=== PATIENT | male | born 1985 | race Caucasian/White ===

== ENCOUNTER 2024-06-03 13:59 | Emergency (ER) | payer BC, SELFPAY ==
--- NOTE | 2024-06-03 14:02 | XR_ITS ---
Examination: AP chest single view Technique: AP portable semiupright chest single view Exam date and time: June 03, 2024 1440 hrs. Indications: Shortness of breath beginning 2 days ago. Findings: Mild prominence of ventricle No pneumonia or pulmonary edema Intact osseous structures Impression: No active disease
--- NOTE | 2024-06-03 14:02 | EKG_ITS ---
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
--- NOTE | 2024-06-03 14:04 | EDNOTE_ITS ---
<Statement entered by Adriana Trujillo MD - 06/03/24 19:45> As co-signing physician, I was present and available for consult prn. I concur with the plan and care as documented by the midlevel provider. ED General RME/HPI General Chief complaint: Shortness of Breath/Dyspnea Stated complaint: SOB Time Seen by Provider: 06/03/24 14:00 Arrival date/time: 06/03/24 13:59 RME / HPI RME / HPI narrative: 39-year-old male patient with no significant past medical history except for chronic smoker, was brought in by EMS for evaluation regarding shortness of breath. Onset of symptoms for several days, getting worse today, while at work, patient was noted to be super weak, lying on the ground. EMS arrived patient was noted to be wheezing, and having shortness of breath. Patient uses his albuterol with no relief. Patient was given albuterol breathing treatment and put the patient on oxygen afforded significant improvement of symptoms. Related Data Previous Rx's ?Medication ?Instructions ?Recorded albuterol sulfate 90 mcg/actuation 2 inh inhalation QID PRN shortness 06/03/24 breath activated powder inhaler of breath or wheezing #1 ea (ProAir RespiClick) fluticasone 250 mcg-salmeterol 50 1 inh inhalation BID #60 ea 06/03/24 mcg/dose blistr powdr for inhalation (Advair Diskus) prednisone 50 mg tablet 50 mg PO QDAY #5 tabs 06/03/24 Allergies Allergy/AdvReac Type Severity Reaction Status Date / Time No Known Allergies Allergy Verified 06/03/24 14:46 Review of Systems Review of Systems Narrative Review of Systems: Review of system reviewed and within normal limits except mentioned in HPI ED Exam Narrative Physical exam: VITAL SIGNS: Reviewed. GENERAL APPEARANCE: Alert and interactive, follows commands, no acute distress, HEAD AND FACE: Non-traumatic. ENT: PERRL, pink conjunctivitis, eyelid no trauma, Mucous membrane moist. NECK: Supple, nontender, no nuchal rigidity. CHEST: No tenderness, no crepitus, no paradoxical movement, no retractions. LUNGS: Clear, well ventilated, symmetric, no rales, no wheezing, no ronchi, no stridor, good breath sounds bilaterally. HEART: Regular rate, regular rhythm, no murmur, no gallops. ABDOMEN: Soft, positive bowel sounds, nondistended, no guarding, nontender, no rebound, no masses, RECTAL: Deferred. GENITAL: Deferred. NEUROLOGICAL: Gross motor function intact sensory function intact, Appropriate for age. MUSCULOSKELETAL: low back nontender, full range of motion. EXTREMITIES: Nontender, full range of motion. SKIN: Color pink, dry, no rash, no lacerations, no abrasions, no contusions. LYMPHATICS: Deferred. Course Quality Measures none Orders Category Date Time Status Bedside COVID-19 Antigen Test NOW Care 06/03/24 14:03 Active Bedside Influenza A&B Antigen Test NOW Care 06/03/24 14:03 Completed EKG (ED ONLY) *Do not use* NOW Care 06/03/24 14:02 Completed EKG (ED Only) Stat Exams 06/03/24 14:02 Draft XR chest 1V Stat Exams 06/03/24 14:02 Completed B-Type Natriuretic Peptide Stat Lab 06/03/24 14:28 Completed Blood Culture (Lab) Stat Lab 06/03/24 16:02 Received C-Reactive Protein Stat Lab 06/03/24 14:28 Completed CBC Stat Lab 06/03/24 14:28 Completed Comprehensive Metabolic Panel Stat Lab 06/03/24 14:28 Completed Lactate (Lactic Acid) Stat Lab 06/03/24 14:28 Completed Partial Thromboplastin Time Stat Lab 06/03/24 14:28 Completed Potassium Stat Lab 06/03/24 18:25 Completed Procalcitonin Stat Lab 06/03/24 14:28 Completed Prothrombin Time with INR Stat Lab 06/03/24 14:28 Completed Troponin I Stat Lab 06/03/24 14:28 Completed VBG [Venous Blood Gas] Stat Lab 06/03/24 14:28 Completed Albuterol/Ipratr Rt Sonja [Duoneb Rt Sonja] Med 06/03/24 14:03 Discontinued 3 ml INH X1 ONE Dexamethasone Inj [Decadron Inj] Med 06/03/24 14:05 Discontinued 10 mg IV X1 ONE POTASSIUM CHL 10 mEq IVPB [Kcl Ivpb] Med 06/03/24 16:00 Discontinued 10 meq in 100 ml IV X1 Potassium Chloride [K-Dur] Med 06/03/24 15:59 Discontinued 40 meq PO X1 ONE Potassium Chloride [K-Dur] Med 06/03/24 17:16 Discontinued 40 meq PO X1 ONE Sodium Chloride 0.9% 1000 ml [Ns] 1,000 ml Med 06/03/24 14:03 Discontinued IV 999 mls/hr Vital Signs Vital signs: Vital Signs Pulse Rate 96 06/03/24 14:20 Respiratory Rate 16 06/03/24 14:20 Pulse Oximetry (%) 100 06/03/24 14:20 [facility] Patient data External records reviewed:: EMS form Clinical information provided by:: patient Social determinants that could affect healthcare access:: none Patient has the following chronic illnesses:: Cigarette smoker, COPD, How is presenting disease/condition affected by chronic disease/condition?: e xacerbated by Evaluation data The following diagnostics were reviewed and interpreted by me:: lab results, radiology exam(s) and EKG tracing(s) Lab and/or radiology exams considered but not ordered:: None Interpretation Summary: EKG showed sinus rhythm, ventricular rate of 76 bpm, no ST segment elevation depression noted. Patient's workup today all came back normal. I personally reviewed and interpreted the x-ray of this patient. There is no acute abnormalities found, no infiltrates no pneumothorax no hemothorax normal chest x-ray. Review of other structures was without significant abnormal findings also. I additionally reviewed the radiologist report and agree with the interpretation. Medications Medications considered but not ordered:: None Medication administrations:: Medication Administration History Discontinued Medications Albuterol/Ipratropium (Albuterol/Ipratropium (Duoneb) Rt Sonja 3 Ml Nebu) 3 ml INH X1 ONE Stop: 06/03/24 14:04 Last Admin: 06/03/24 14:20 Dose: 3 ml Documented By: KAROLINE Dexamethasone Sodium Phosphate (Dexamethasone Sod Phos Inj 10 Mg/Ml Vial) 10 mg IV X1 ONE Stop: 06/03/24 14:06 Last Admin: 06/03/24 14:49 Dose: 10 mg Documented By: OANH Sodium Chloride (Ns) 1,000 mls @ 999 mls/hr IV .Q1H1M ONE Stop: 06/03/24 15:03 Last Infusion: 06/03/24 16:00 Dose: Infused Documented By: Admin: 06/03/24 14:49 Dose: 999 mls/hr Documented By: OANH Potassium Chloride (Kcl Ivpb) 10 meq in 100 mls @ 100 mls/hr IV X1 ONE Stop: 06/03/24 16:59 Last Infusion: 06/03/24 17:39 Dose: Infused Documented By: Admin: 06/03/24 16:25 Dose: 100 mls/hr Documented By: GM Potassium Chloride (Potassium Chloride 20 Meq Tabcr) 40 meq PO X1 ONE Stop: 06/03/24 16:00 Last Admin: 06/03/24 16:21 Dose: 40 meq Documented By: GM Potassium Chloride (Potassium Chloride 20 Meq Tabcr) 40 meq PO X1 ONE Stop: 06/03/24 17:17 Last Admin: 06/03/24 17:51 Dose: 40 meq Documented By: AM Potassium replacement, repeat treatment Solu-Medrol IV Consultations Consultation(s) initiated? (list below): No Diagnosis Differential Diagnosis ED Complaint MDM: COPD exacerbation, pneumonia, hypokalemia Most likely diagnosis given after review of the tests above:: Hypokalemia, COPD exacerbation Admission Indicated Admission indicated?: not indicated Explain why admission is indicated or not indicated:: Stable Admission Request Was there a request for admission?: No Disposition Plan Disposition Plan: Discharge Discharge Attestation Discharge Attestation: The patient and all family members were given an opportunity to ask questions and understood the discharge instructions. Discharge instructions specifically effects, indications for sooner follow up or return to the emergency department, and the expected course of current diagnosis. Patient condition: Stable Medical Decision Making MDM Narrative MDM Narrative: 39-year-old male patient with no significant past medical history except for chronic smoker, was brought in by EMS for evaluation regarding shortness of breath. Onset of symptoms for several days, getting worse today, while at work, patient was noted to be super weak, lying on the ground. EMS arrived patient was noted to be wheezing, and having shortness of breath. Patient uses his albuterol with no relief. Patient was given albuterol breathing treatment and put the patient on oxygen afforded significant improvement of symptoms. Patient's workup today all came back significant for potassium of 2.8, patient tested negative for COVID and influenza. Chest x-ray came back unremarkable. Repeat potassium was noted to be 3.6 patient verbalized significant improvement of symptoms Patient received potassium replacement, total breathing treatment, and Solu- Medrol IV patient is satting 95% on room air prior to discharge. Patient was counseled about stopping smoking which could be the reason for his COPD. Patient agrees with the plan Differential Diagnosis Differential Diagnosis: COPD exacerbation, pneumonia, hypokalemia Lab Data 06/03/24 14:28 06/03/24 18:25 Labs: Lab Results 06/03/24 06/03/24 Range/Units 14:28 18:25 WBC 13.7 H (3.8-10.6) Thou/mm3 RBC 4.89 (4.50-5.90) Miln/mm3 Hgb 14.3 (13.5-16.0) g/dL Hct 40.0 L (41.0-53.0) % MCV 82 (80-100) fL MCH 29.2 (25.0-35.0) pg MCHC 35.8 (31.0-37.0) g/dl RDW Std Deviation 36.4 (35.1-43.9) fL Plt Count 318 (140-440) Thou/mm3 Neut % (Auto) 74 (37-80) % Lymph % (Auto) 21 (10-50) % [place] % (Auto) 4 (0-12) % Eos % (Auto) 0 (0-10) % Baso % (Auto) 0 (0-2.5) % Neut # (Auto) 10.1 H (1.8-7.7) Thou/mm3 Lymph # (Auto) 2.9 (1.0-4.8) Thou/mm3 [place] # (Auto) 0.6 (0.0-0.8) Thou/mm3 Eos # (Auto) 0.0 (0.0-0.5) Thou/mm3 Baso # (Auto) 0.0 (0.0-0.2) Thou/mm3 Immature Gran # (Auto) 0.07 H (0.00-0.00) Thou/mm3 Absolute Nucleated RBC 0.00 (0.00-0.00) Thou/mm3 Immature Gran % 1 H (0-0) % Nucleated RBC % 0 (0) /100 WBC PT 10.9 (9.0-12.2) Seconds INR 1.0 (0.9-1.3) APTT 20.4 L (22.0-36.0) Seconds VBG pH 7.57 (7.33-7.66) VBG pCO2 21 L (36-56) mmHg VBG pO2 43 (15-58) mmHg VBG O2 Sat ([place]) 86 L (96-97) % VBG Base Excess 0 (-3-3) Sodium 136 (136-145) mMol/L Potassium 2.8 L 3.6 D (3.4-5.1) mMol/L Chloride 106 (98-107) mMol/L Carbon Dioxide 19.1 L (20.0-31.0) mMol/L Anion Gap 11 (7-16) BUN 15 (9-23) mg/dL Creatinine 1.2 (0.6-1.3) mg/dL Estim Creat Clear Calc 98.2 (>60) mL/min eGFR > 60 (60 - ) See Note BUN/Creatinine Ratio 13 (12-20) Ratio Glucose 78 (74-106) mg/dL Calculated Osmolality 271 L (275-295) Lactic Acid 1.6 (0.4-2.0) mMol/L Calcium 9.9 (8.3-10.6) mg/dL Corrected Calcium 9.9 (8.5-10.1) mg/dL Total Bilirubin 0.8 (0.3-1.2) mg/dL AST 44 H (0-34) U/L ALT 73 H (10-49) U/L Alkaline Phosphatase 60 (46-116) U/L Troponin I < 0.020 (0.0-0.045) ng/mL C-Reactive Prot, Quant < 0.4 (0.0-0.9) mg/dL B-Natriuretic Peptide < 20 (0-100) pg/mL Total Protein 6.9 (5.7-8.2) gm/dL Albumin 5.0 (3.5-5.0) gm/dL Globulin 1.9 L (2.3-3.5) gm/dL Albumin/Globulin Ratio 2.6 H (1.2-2.2) Procalcitonin 0.06 (0.0-0.49) ng/ml Discharge Plan Plan Patient Disposition: HOME (Self Care) Disposition Comment: stable Prescriptions/Referrals Prescriptions/Med Rec: New prednisone 50 mg tablet 50 mg PO QDAY Qty: 5 0RF fluticasone propion-salmeterol [Advair Diskus] 250-50 mcg/dose blister with device 1 inh inhalation BID Qty: 60 0RF ProAir RespiClick 90 mcg/actuation aerosol powdr breath activated 2 inh inhalation QID PRN (Reason: shortness of breath or wheezing) Qty: 1 0RF Referrals: No Primary/Family,Physician [Primary Care Provider] - In 1 week Problem List Clinical Impression: Acute exacerbation of chronic obstructive airways disease, Cigarette smoker, Hypokalemia Patient/Caregiver Discharge Instructions Discharge Activity: activity as tolerated Education Materials: COPD Meds Additional Instructions: Thank you for the opportunity for serving you today. You are stable for discharged . You are advised to: Follow-up with your PCP in 1 to 2 days Return to ED for worsening of symptoms Increase oral fluids Take medication as prescribed Please stop or reduce your consumption of cigarette smoking Increase banana in your diet Print Language: Stateless Stand Alone Forms: [employer] Award Info., Patient Portal Info Letter PA/JIMMY Supervising Physician JESENIA/JIMMY Supervising Physician: Md Bhargav
[2024-06-03 14:20] VITALS: PULSE 96; RESP 16; O2SAT 100
[2024-06-03] MEDS: ALBUTEROL/IPRATROPIUM (Duoneb) RT SOL 3 ML NEBU INH (14:20)
[2024-06-03 14:28] VITALS: BP 126/78; PULSE 100; PULSE 102; RESP 20; RESP 24; TEMP 36.5; O2SAT 100; O2SAT 99; BMI 32.5
[2024-06-03] MEDS: DEXAMETHASONE SOD PHOS INJ 10 MG/ML VIAL IV (14:49)
[2024-06-03] MEDS: SODIUM CHLORIDE 0.9% 1000 ML 1,000 ML 999 ML IV (14:49)
[2024-06-03 14:51] LABS: Base Excess, Venous 0 (-3-3); O2 Saturation, Venous 86 % (96-97); PCO2, Venous 21 mmHg (36-56); PO2, Venous 43 mmHg (15-58); pH, Venous 7.57 (7.33-7.66)
[2024-06-03 14:52] LABS: Lactate (Lactic Acid) 1.6 mMol/L (0.4-2.0)
[2024-06-03 14:56] LABS: Basophils % (Auto) 0 % (0-2.5); Eosinophils % (Auto) 0 % (0-10); Hemoglobin 14.3 g/dL (13.5-16.0); Immature Granulocytes % (Auto) 1 % (0-0); Immature Granulocytes Auto 0.07 Thou/mm3 (0.00-0.00); Lymphocytes # (Auto) 2.9 Thou/mm3 (1.0-4.8); Lymphocytes % (Auto) 21 % (10-50); Mean Corpuscular HGB Conc 35.8 g/dl (31.0-37.0); Mean Corpuscular Hemoglobin 29.2 pg (25.0-35.0); Mean Corpuscular Volume 82 fL (80-100); Monocytes # (Auto) 0.6 Thou/mm3 (0.0-0.8); Monocytes % (Auto) 4 % (0-12); Neutrophils # (Auto) 10.1 Thou/mm3 (1.8-7.7); Neutrophils % (Auto) 74 % (37-80); Nucleated Red Blood Cell % 0 /100 WBC (0); Platelet Count 318 Thou/mm3 (140-440); RDW Standard Deviation 36.4 fL (35.1-43.9); Red Blood Count 4.89 Miln/mm3 (4.50-5.90); White Blood Count 13.7 Thou/mm3 (3.8-10.6)
[2024-06-03 15:18] LABS: Partial Thromboplastin Time 20.4 Seconds (22.0-36.0); Prothrombin Time 10.9 Seconds (9.0-12.2)
[2024-06-03 15:26] LABS: B-Type Natriuretic Peptide < 20 pg/mL (0-100)
[2024-06-03 15:29] LABS: Alanine Aminotransferase 73 U/L (10-49); Albumin/Globulin Ratio 2.6 (1.2-2.2); Alkaline Phosphatase 60 U/L (46-116); Anion Gap 11 (7-16); Aspartate Amino Transferase 44 U/L (0-34); BUN/Creatinine Ratio 13 Ratio (12-20); Bilirubin,Total 0.8 mg/dL (0.3-1.2); Blood Urea Nitrogen 15 mg/dL (9-23); C-Reactive Protein < 0.4 mg/dL (0.0-0.9); Calcium 9.9 mg/dL (8.3-10.6); Calcium (Corrected) 9.9 mg/dL (8.5-10.1); Carbon Dioxide 19.1 mMol/L (20.0-31.0); Chloride 106 mMol/L (98-107); Creatinine (Component) 1.2 mg/dL (0.6-1.3); Estimated Creatinine Clearance 98.2 mL/min (>60); Globulin 1.9 gm/dL (2.3-3.5); Glucose 78 mg/dL (74-106); Osmolality,Calculated 271 (275-295); Potassium 2.8 mMol/L (3.4-5.1); Procalcitonin 0.06 ng/ml (0.0-0.49); Sodium 136 mMol/L (136-145); Total Protein 6.9 gm/dL (5.7-8.2); Troponin I < 0.020 ng/mL (0.0-0.045); eGFR > 60 See Note
[2024-06-03] MEDS: POTASSIUM CHLORIDE 20 mEq TABCR 40 MEQ PO ×2 (16:21→17:51)
[2024-06-03] MEDS: POTASSIUM CHL 10 mEq IVPB 10 MEQ/100 ML BAG 100 MEQ IV (16:25)
[2024-06-03 16:28] VITALS: BP 127/68; PULSE 80; RESP 18; TEMP 36.4; O2SAT 98
[2024-06-03 18:19] VITALS: BP 128/68; PULSE 86; RESP 20; TEMP 37; O2SAT 95
[2024-06-03 18:52] LABS: Potassium 3.6 mMol/L (3.4-5.1)
[2024-06-03 19:45] VITALS: BP 127/79; PULSE 81; RESP 17; O2SAT 97
== END 2024-06-03 19:50 | disposition home or self-care (01) ==
PROVIDERS: Nurse Practitioner Family; Emergency Provider Emergency Medicine
DX: J44.1 Chronic obstructive pulmonary disease with (acute) exacerbation (principal); E87.6 Hypokalemia; F17.210 Nicotine dependence, cigarettes, uncomplicated; I49.3 Ventricular premature depolarization
CPT/HCPCS: 36415; 71045; 80053; 82803; 83605; 83880; 84132; 84145; 84484; 85025; 85610; 85730; 86140; 87040; 87077; 87186; 87400; 87811; 93005; 94640; 96361; 96365; 96375; 99284; A9270; J1100; J3480; J7030